=== PATIENT | female | born 1990 | race Caucasian/White ===

== ENCOUNTER 2017-01-04 23:37 | Emergency (ER) | payer SELFPAY ==
[~2017-01-04] VITALS: Ht 167.6 cm; Wt 133.0 kg
[~2017-01-04 23:37] MED LIST: AMOXICILLIN500 MG PO; CYCLOBENZAPR10 MG PO; DOXYCYCL HYC100 M3 PO; ERY-TAB333 MG OR; FLAGYL500 MG OR; FLEXERIL PO; NAPROSYN500 MG PO; NAPROXEN500 MG PO; NO; ROCEPHIN 2250 MG/VIA IM; SMZ-TMP DS1 TAB PO; TRIAMCINOLON0.11 EX; TYLENOL500 MG OR; ULTRAM50 M1 PO; ZITHROMAX250 MG PO
[2017-01-05] MEDS ORDERED: ULTRAM50 M1 PO (02:17)
[2017-01-05 02:50] VITALS: BP 130/94
== END 2017-01-05 02:50 | disposition home or self-care (01) | DRG 563 ==
LOC: ED 23:37
DX: S93.402A Sprain of unspecified ligament of left ankle, initial encounter (principal); W10.8XXA Fall (on) (from) other stairs and steps, initial encounter; Y92.009 Unspecified place in unspecified non-institutional (private) residence as the place of occurrence of the external cause

== ENCOUNTER 2017-10-05 17:20 | Emergency (ER) | payer SELFPAY ==
[~2017-10-05] VITALS: Ht 167.6 cm; Wt 118.0 kg
[2017-10-05] MEDS ORDERED: TAM75CAP PO (17:53)
[2017-10-05] MEDS ORDERED: ZPAK PO (17:53)
[2017-10-05] MEDS ORDERED: PROAIR HFA108 MCG/AC PO (17:55)
[2017-10-05 17:56] VITALS: BP 122/85
== END 2017-10-05 18:06 | disposition home or self-care (01) | DRG 153 ==
LOC: ED 17:20
DX: J06.9 Acute upper respiratory infection, unspecified (principal); R05 Cough; R09.81 Nasal congestion; R09.89 Other specified symptoms and signs involving the circulatory and respiratory systems; R50.9 Fever, unspecified

== ENCOUNTER 2019-09-28 | Emergency (ER) | payer OTHER ==
[~2019-09-28] MED LIST changes: +MOTRIN400 MG PO; +PROAIR HFA108 MCG/AC PO; +TAM75CAP PO; +VOLTAREN1%GEL TOP; +ZPAK PO
[2019-09-28] MEDS ORDERED: IBUPROFEN600 MG PO (22:54)
== END 2019-09-28 23:35 | disposition home or self-care (01) | DRG 605 ==
DX: S00.81XA Abrasion of other part of head, initial encounter (principal); F17.210 Nicotine dependence, cigarettes, uncomplicated; V49.40XA Driver injured in collision with unspecified motor vehicles in traffic accident, initial encounter